=== PATIENT | female | born 1985 | race Caucasian/White ===

== ENCOUNTER → 2016-11-15 | Outpatient (CLI) | payer OTHER, BC ==
[~2016-11-15] MED LIST: AMOX500C3 PO; AMOX500T PO; PRENTAB26 PO
--- NOTE | 2016-11-15 10:10 | DIAGNOSTIC IMAGING REPORT ---
KUB HISTORY: N20.0 Calculus of [id number] COMPARISON: KUB 05/12/2016. FINDINGS: The bowel gas pattern is unremarkable. There are no dilated loops of small bowel to suggest an obstruction. Stable right pelvic calcifications suggestive of phleboliths. No renal or ureteral calculi identified. Cholecystectomy. No pneumoperitoneum or pneumatosis. IMPRESSION: No renal or ureteral stones. Electronically signed by: Lazaro Montalvo M.D. 11/15/2016 10:08 AM Dictated Date/Time: 11/15/2016 10:06 AM
== END | disposition home or self-care (01) ==
LOC: C.RAD1850 09:42
PROVIDERS: ATTEND Nurse Practitioner Family
DX: N20.0 Calculus of kidney (principal)

== ENCOUNTER → 2016-12-08 | Outpatient (CLI) | payer OTHER, BC ==
[2016-12-08 09:57] LABS: ALT/SGPT 45 U/L (12-78); BLOOD UREA NITROGEN 14 mg/dl (7-18); BUN/CREATININE RATIO 20.6 (10-20); CALCIUM 8.6 mg/dl (8.5-10.1); CARBON DIOXIDE 26 mmol/L (21-32); CHLORIDE 106 mmol/L (98-107); CHOLESTEROL 165 mg/dl (0-200); CREATININE 0.67 mg/dl (0.60-1.20); GLUCOSE 89 mg/dl (70-99); POTASSIUM 3.6 mmol/L (3.5-5.1); SODIUM 139 mmol/L (136-145)
[2016-12-08 10:08] LABS: ALB/GLOB RATIO 1.1 (0.9-2); ALKALINE PHOSPHATASE 139 U/L (45-117); AST/SGOT 16 U/L (15-37); CHOLESTEROL/HDL RATIO 3.2; HDL CHOLESTEROL 52 mg/dl; LDL CHOLESTEROL CALCULATED 93 mg/dl; THYROID STIMULATING HORMONE < 0.005 uIu/ml (0.300-4.500); TRIGLYCERIDES 102 mg/dl (0-150); VERY LOW DENSITY LIPOPROT CALC 20 mg/dl
== END | disposition home or self-care (01) ==
LOC: C.LAB1850 07:12
PROVIDERS: ATTEND Internal Medicine
DX: Z13.220 Encounter for screening for lipoid disorders (principal); M79.89 Other specified soft tissue disorders

== ENCOUNTER → 2016-12-16 | Outpatient (CLI) | payer OTHER, BC ==
[2016-12-16 10:28] LABS: BLOOD UREA NITROGEN 10 mg/dl (7-18); BUN/CREATININE RATIO 13.5 (10-20); CALCIUM 8.9 mg/dl (8.5-10.1); CARBON DIOXIDE 27 mmol/L (21-32); CHLORIDE 108 mmol/L (98-107); CREATININE 0.73 mg/dl (0.60-1.20); GLUCOSE 89 mg/dl (70-99); POTASSIUM 4.1 mmol/L (3.5-5.1); SODIUM 142 mmol/L (136-145)
[2016-12-16 10:42] LABS: C-REACTIVE PROTEIN < 0.29 mg/dl (0-0.29); THYROID STIMULATING HORMONE < 0.005 uIu/ml (0.300-4.500)
== END | disposition home or self-care (01) ==
LOC: C.LAB1850 07:22
PROVIDERS: ATTEND Internal Medicine
DX: R79.89 Other specified abnormal findings of blood chemistry (principal); M79.89 Other specified soft tissue disorders

== ENCOUNTER → 2017-01-21 | Outpatient (CLI) | payer OTHER, BC ==
[2017-01-21 10:34] LABS: HEMATOCRIT 41.2 % (37-47); MEAN CELL VOLUME 83.6 fL (80-100); MEAN CORPUSCULAR HEMOGLOBIN 28.2 pg (25-34); MEAN CORPUSCULAR HGB CONC 33.7 g/dl (32-36); MEAN PLATELET VOLUME 9.4 fL (7.4-10.4); PLATELET COUNT 274 K/uL (130-400); RED BLOOD COUNT 4.93 M/uL (4.2-5.4); WHITE BLOOD COUNT 10.34 K/uL (4.8-10.8)
[2017-01-21 11:11] LABS: THYROID STIMULATING HORMONE 4.62 uIu/ml (0.300-4.500)
[2017-01-26 19:33] LABS: MICROSOMAL AB <1 IU/ML (<9); TSI 113 % baseline (<140)
== END | disposition home or self-care (01) ==
LOC: C.LAB1850 10:01
PROVIDERS: ATTEND Internal Medicine Endocrinology, Diabetes & Metabolism
DX: M79.1 Myalgia (principal); R53.83 Other fatigue; R79.89 Other specified abnormal findings of blood chemistry

== ENCOUNTER → 2017-03-09 | Outpatient (CLI) | payer OTHER, BC ==
[2017-03-09 17:04] LABS: THYROID STIMULATING HORMONE 1.38 uIu/ml (0.300-4.500)
== END | disposition home or self-care (01) ==
LOC: C.LAB1850 14:57
PROVIDERS: ATTEND Internal Medicine Endocrinology, Diabetes & Metabolism
DX: R79.89 Other specified abnormal findings of blood chemistry (principal); E05.90 Thyrotoxicosis, unspecified without thyrotoxic crisis or storm

== ENCOUNTER → 2017-04-12 | Outpatient (CLI) | payer OTHER, BC ==
[2017-04-12 15:04] LABS: THYROID STIMULATING HORMONE 0.796 uIu/ml (0.300-4.500)
== END | disposition home or self-care (01) ==
LOC: C.LAB1850 12:29
PROVIDERS: ATTEND Internal Medicine Endocrinology, Diabetes & Metabolism
DX: R79.89 Other specified abnormal findings of blood chemistry (principal); Z86.39 Personal history of other endocrine, nutritional and metabolic disease

== ENCOUNTER → 2017-04-14 | Outpatient (CLI) | payer OTHER, BC | END | disposition home or self-care (01) | LOC: C.LABSPEC 17:53 | PROVIDERS: ATTEND Obstetrics & Gynecology | DX: J02.9 Acute pharyngitis, unspecified (principal) ==

== ENCOUNTER → 2017-08-01 | Outpatient (CLI) | payer OTHER, BC ==
[2017-08-01 14:24] LABS: THYROID STIMULATING HORMONE 1.97 uIu/ml (0.300-4.500)
[2017-08-02 07:11] LABS: ESTIMATED AVERAGE GLUCOSE 100 mg/dl; HA1C FLAG Normal (Normal)
== END | disposition home or self-care (01) ==
LOC: C.LAB1850 11:21
PROVIDERS: ATTEND Internal Medicine Endocrinology, Diabetes & Metabolism
DX: E55.9 Vitamin D deficiency, unspecified (principal); Z87.898 Personal history of other specified conditions; R94.6 Abnormal results of thyroid function studies; Z86.39 Personal history of other endocrine, nutritional and metabolic disease

== ENCOUNTER → 2017-11-29 | Outpatient (CLI) | payer BC | END | disposition home or self-care (01) | LOC: C.LAB1850 08:48 | PROVIDERS: ATTEND Internal Medicine Endocrinology, Diabetes & Metabolism | DX: R94.6 Abnormal results of thyroid function studies (principal); R63.5 Abnormal weight gain ==

== ENCOUNTER 2020-03-13 04:36 | Inpatient (IN) ==
[2020-03-13] MEDS ORDERED: OXYTOCIN 30 UNITS/500 ML BAG IV PRN ×3 (08:11→20:20)
[2020-03-13] MEDS ORDERED: PENICILLIN G POTASSIUM 6 MU in DEXTROSE 5% 250 ML IV STA (08:18)
[2020-03-13 08:38] LABS: Hematocrit (blood only) 31.3 % (37-47); Hemoglobin 10.6 g/dL (12.0-16.0); Mean Corpuscular Hemoglobin 28.4 pg (25-34); Mean Corpuscular Volume 83.9 fL (80-100); Mean Platelet Volume 10.7 fL (7.4-10.4); Platelet Count 174 K/uL (130-400); RDW Coefficient of Variation 13.6 % (11.5-14.5); RDW Standard Deviation 41.9 fL (36.4-46.3); Red Blood Count 3.73 M/uL (4.2-5.4); White Blood Count 8.27 K/uL (4.8-10.8)
[2020-03-13 08:41] LABS: Mean Corpuscular Hgb Conc 33.9 g/dL (32-36)
[2020-03-13] MEDS: LACTATED RINGER'S 1,000 ML IV PRN ×2 (09:10→16:56)
--- NOTE | 2020-03-13 09:35 | History & Physical Report ---
Date of Service March 13, 2020 Assessment & Plan (1) resulting from in-vitro fertilization: - Induction of labor with pitocin per protocol - Penicillin G for intrapartum GBS treatment History of Present Illness Primary Care Provider: Alejandra Delacruz MD Collin is a 34 y/o female EDC 03/20/20 confirmed by ultrasound; comes in for elective induction; GBS positive . Positive contractions; Positive movement; No fluid loss; No bloody show External FHT and external uterine monitors used; Category I tracing; Minimal FHT variability. Had regular appointments with OB. Labs: (03/13/20) Blood type: O negative (Rhogam given 12/28/19) Antibody screen: Neg H.6 Hct: 31.3 WBC: 8.27 Plt: 174 Rubella: Immune VDRL/RPR: Neg Gonorrhea: Neg Chlamydia: Neg HIV: Neg CF: Neg SMA: Neg HbSAg: Neg GBS Positive Allergies Allergy/AdvReac Type Severity Reaction Status Date / Time ethinyl estradiol Allergy Intermediate Hives Verified 03/12/20 20:19 [From [place] (28)] minocycline Allergy Intermediate HIVES Verified 03/12/20 20:19 norethindrone Allergy Hives Verified 03/12/20 20:19 [From [facility] ()] Home Medications Home Medications Medication Instructions Recorded Confirmed Type prenat.vits,eileen,lse-dpir-luzhq 1 tab PO DAILY 08/20/19 03/13/20 History levothyroxine 75 mcg tablet 75 mcg PO .COMPLEX #30 tab 10/04/19 03/13/20 Rx Patient History Social History Preferred Language: Macanese Communication Ability: Effective Beliefs That Will Affect Care: None marital status: marital status details: Dwight Inch ( ) Current Living Situation: Family Current Living Situation Comment: lives with spouse, 4 children, 2 dogs, goats, current occupational status: employed current occupation: [employer] Other Information That Helps Us Care for You: No Feels Safe at Home: Yes Safety Concerns: Feels Safe At This Time Smoking Status: Never smoker Hx Alcohol Use: No Hx Substance Use: No Review of Systems Constitutional: denies fever, chills, sweat, headache Respiratory: denies shortness of breath, difficulty breathing Cardiac: denies chest pain, palpitations, chest pressure Breast: denies breast pain : denies dysuria Physical Exam Physical Exam: General: Alert, oriented. No acute distress. Cardiac: Regular rate and rhythm, no murmurs/rubs/gallops. Respiratory: Clear to auscultation bilaterally a/p, no wheezes/rales/rhonchi. No increased work of breathing. Symmetrical chest rise. No respiratory distress. Abdomen: Gravid; FH term; Positive FHTs; Position: V Pelvic: Dilation 2cm; Effacement 50%; Station -[address] Cox Lower Extremities: No lower extremity edema or swelling. No deep calf pain. Johny's negative bilaterally Results & Data Vital Signs (Past 12 Hours) Vital Signs Temp Pulse Resp BP 03/13/20 09:21 83 126/83 03/13/20 08:12 75 117/78 03/13/20 08:06 36.9 C 16 Supervising Physician Co-Signing Physician Notes Resident Physician Supervision Note: I interviewed and examined the patient. Discussed with Dr. Hayes and agree with findings and plan as documented in the note. Any exceptions or clarifications are listed here: [None] Documented By: Shirley Alaniz MD, FACOG Resident Activity Tracking Resident Involvement: Resident Care Provided Care Provided: OB Delivery
[2020-03-13] MEDS: PENICILLIN G POTASSIUM 3 MU in DEXTROSE 5% 100 ML IV PRN ×2 (12:51→16:49)
[2020-03-13] MEDS ORDERED: ePHEDrine sulfate 50 MG/ML AMP ONE (19:10)
[2020-03-13] MEDS ORDERED: BUPIVACAINE 0.25% 30 ML VIAL ONE (19:10)
[2020-03-13] MEDS ORDERED: fentaNYL 2MCG/ML ROPIV 1.25MG/ML 100 ML BAG EPI ONE (19:10)
[2020-03-13] MEDS ORDERED: fentaNYL citrate 100 MCG/2 ML VIAL ONE (19:10)
[2020-03-13] MEDS ORDERED: NALOXONE HCL 1 MG in SODIUM CHLORIDE 0.9% 1000ML 1,000 ML IV PRN (19:27)
[2020-03-13] MEDS ORDERED: ePHEDrine sulfate 50 MG/ML AMP IV PRN (19:27)
[2020-03-13] MEDS ORDERED: NALOXONE HCL 0.4 MG/1 ML VIAL/CARP IV PRN (19:27)
[2020-03-13] MEDS ORDERED: PROMETHAZINE HCL 6.25 MG in SODIUM CHLORIDE 0.9% 50 ML IV PRN (19:27)
[2020-03-13] MEDS ORDERED: DiphenhydrAMINE HCL 50 MG/ML VIAL IV PRN (19:27)
[2020-03-13] MEDS ORDERED: ONDANSETRON INJ 2 MG/ML 2 ML VIAL IV PRN (19:27)
[2020-03-13] MEDS ORDERED: fentaNYL 2MCG/ML ROPIV 1.25MG/ML 100 ML BAG EPI PRN (19:27)
--- NOTE | 2020-03-13 19:27 | Anesthesiology Consultation ---
Date of Service March 13, 2020 Assessment & Plan (1) Encounter for pre-operative examination: Chart Review Chart Review: Patient NOT seen in Pre Admission Testing and Acceptable Risk for Labor Epidural Consults Requested none ASA ASA2 Proposed Anesthesia Anesthesia Type: Labor Epidural Risk / Benefits Reviewed With: PT / POA / Parent / Guardian, Accepts Plan and Informed Consent Obtained History Height/Weight Height: 5 ft 9 in Weight: 109.769 kg Allergies Allergy/AdvReac Type Severity Reaction Status Date / Time ethinyl estradiol Allergy Intermediate Hives Verified 03/12/20 20:19 [From [place] (28)] minocycline Allergy Intermediate HIVES Verified 03/12/20 20:19 norethindrone Allergy Intermediate Hives Verified 03/13/20 13:46 [From [facility] ()] Medications Home Medications Medication Instructions Recorded Confirmed Last Taken prenat.vits,eileen,sst-xsca-eftrh 1 tab PO DAILY 08/20/19 03/13/20 03/11/20 levothyroxine 75 mcg tablet 75 mcg PO .COMPLEX #30 tab 10/04/19 03/13/20 03/13/20 Active Medications Generic Name Dose Route Start Last Admin Trade Name Freq PRN Reason Stop Dose Admin Lactated Ringer's 1,000 mls @ 125 mls/hr 03/13/20 08:11 03/13/20 19:06 Lr IV 03/15/20 08:10 999 mls/hr .Q8H PRN Infusion L&D Protocol Protocol Penicillin G Potassium 3 mu/ 106 mls @ 100 mls/hr 03/13/20 08:11 03/13/20 17:53 Dextrose IV 03/23/20 08:10 Infused Q4H PRN Infusion Give until delivery Oxytocin 30 units in 500 mls @ 16 mls/hr 03/13/20 08:26 03/13/20 13:00 Pitocin IV 03/15/20 08:25 0.96 units/hr .Q24H PRN 16 mls/hr Labor Induction/Augmentation Titration Protocol 0.96 UNITS/HR NPO Date Last Intake of Fluids: 03/13/20 Time Last Intake of Fluids: 16:00 Date Last Intake of Solids: 03/13/20 Time Last Intake of Solids: 06:00 Past Medical History Medical History Abnormal weight gain (Chronic) Hypothyroidism (Chronic) Iron deficiency anemia (Resolved) Prophylactic immunotherapy Right ureteral calculus (Chronic) Vitamin D deficiency (Chronic) Exercise / Class Metabolic Activity II 4-5 Yardwork/Stairs/Walk up hill Past Family History Family History Grandfather Thyroid cancer Mother Hypertension Leiomyoma of uterus Thyroid disorder Uncle Diabetes Father Heart disease Myocardial infarction Grandmother Pancreatic cancer Daughter Myeloid leukemia Family/Other Alcohol abuse Trisomy 21 Past Surgical History Surgical History History of cholecystectomy Past Anesthesia History No Hx of Anesthesia Complications and No Family Hx of Anesthesia Complications History of PONV No Hx of PONV and No Hx of Motion Sickness Social History Smoking Status: Never smoker Hx Alcohol Use: No Hx Substance Use: No substance use type: does not use Physical Exam Vital Signs Last Vital Signs Temp 36.7 C 03/13/20 17:20 Pulse 79 03/13/20 19:00 Resp 18 03/13/20 15:10 BP 129/98 03/13/20 19:00 ENMT Mouth: no dentition abnormality Thyromental Distance: > or= 3.5 Finger Breadths Mallampati Class: II Neck normal visual inspection Respiratory normal respiratory effort Auscultation: lungs clear to auscultation bilaterally Cardiovascular Rate/Rhythm: regular rate and regular rhythm Psychiatric Orientation: alert Testing Laboratory Results 03/13/20 08:25
[2020-03-13] MEDS ORDERED: BENZOCAINE 20% AER SPR 82.5 GM CAN EXT PRN (20:20)
[2020-03-13] MEDS ORDERED: ACETAMINOPHEN 325 MG TAB PO PRN (20:20)
[2020-03-13] MEDS ORDERED: SUPERCREAM 0.870% 15 GM JAR EXT PRN (20:20)
[2020-03-13] MEDS ORDERED: bisacodyL 10 MG SUPP PR PRN (20:20)
[2020-03-13] MEDS ORDERED: HYDROCORTISONE ACETATE 25 MG SUPP PR PRN (20:20)
[2020-03-13] MEDS ORDERED: DIPHTHERIA/TETANUS/PERTUSSIS 0.5 ML SYR/VIAL IM ONE (20:20)
[2020-03-13] MEDS ORDERED: IBUPROFEN 600 MG TAB PO PRN (20:20)
[2020-03-13] MEDS ORDERED: DOCUSATE SODIUM 100 MG CAP PO SCH (21:00)
--- NOTE | 2020-03-14 02:21 | Delivery Summary ---
DATE OF OPERATION: 03/13/2020 The patient is a 34-year-old 5, para 4-0-0-4 white female, EDC of 03/20/2020 who presents for induction of labor. This is a surrogacy and the patient is requesting induction of labor at 39 weeks. Pitocin augmentation of her labor was begun. Membranes were ruptured for clear fluid. She progressed to approximately 7 cm requesting epidural analgesia. She then rapidly went to full dilation and pushed effectively over intact perineum for delivery of a viable female infant. There was a tight nuchal cord present upon delivery of the head. This was clamped and cut prior to delivering the rest of the which delivered easily. The infant was then taken to the baby bed for the adoptive parents to take part in the delivery. The placenta was expressed intact with a 3-vessel cord. There were no perineal lacerations present. Estimated blood loss was 400 mL. bleeding was controlled with dilute Pitocin. I attest to the content of the Intraoperative Record and any orders documented therein. Any exception s are noted below.
[2020-03-14 06:26] LABS: Hematocrit (blood only) 28.2 % (37-47); Hemoglobin 9.6 g/dL (12.0-16.0); Mean Corpuscular Hemoglobin 28.6 pg (25-34); Mean Corpuscular Volume 83.9 fL (80-100); Mean Platelet Volume 11.6 fL (7.4-10.4); Platelet Count 180 K/uL (130-400); RDW Coefficient of Variation 13.4 % (11.5-14.5); RDW Standard Deviation 40.7 fL (36.4-46.3); Red Blood Count 3.36 M/uL (4.2-5.4); White Blood Count 12.52 K/uL (4.8-10.8)
--- NOTE | 2020-03-14 06:27 | Obstetrical Progress Note ---
Date of Service <Jj Cho MD - Last Filed: 03/14/20 06:27> March 14, 2020 Assessment & Plan <Jj Cho MD - Last Filed: 03/14/20 06:27> (1) Surrogate : - Feels well today. Eating well, voiding well, ambulating well. - Pain well controlled with analgesics. - Routine care - After discharge will have follow-up at 6 weeks. Subjective <Jj Cho MD - Last Filed: 03/14/20 06:27> Collin is a 34 y/o female ; PPD #1 following spontaneous vaginal delivery; doing well this morning; light abdominal cramping & 2/10 pain well managed on analgesics; voiding well; tolerating meals overnight and able to ambulate some; some persistent spotting with some improvement this morning. She says she feels ready to go home today. Review of Systems Constitutional: denies fever, chills, sweat, headache Respiratory: denies shortness of breath, difficulty breathing Cardiac: denies chest pain, palpitations, chest pressure Breast: denies breast pain : denies dysuria Physical Exam <Jj Cho MD - Last Filed: 03/14/20 06:27> General: Alert, oriented. No acute distress. Cardiac: Regular rate and rhythm, no murmurs/rubs/gallops. Respiratory: Clear to auscultation bilaterally a/p, no wheezes/rales/rhonchi. No increased work of breathing. Symmetrical chest rise. No respiratory distress. Abdomen: Soft, nontender, nondistended. Bowel sounds present. Uterus: Uterine fundus firm, palpable 1cm below umbilicus. Lower Extremities: No lower extremity edema or swelling. No deep calf pain. Johny's negative bilaterally. Results & Data <Jj Cho MD - Last Filed: 03/14/20 06:27> Vital Signs (Past 12 Hours) Vital Signs Temp Pulse Pulse Resp BP BP Pulse Ox 03/14/20 03:10 36.6 C 63 18 121/74 99 03/13/20 23:30 36.7 C 62 18 122/71 98 03/13/20 22:11 77 18 114/74 03/13/20 21:55 68 110/59 L 03/13/20 21:40 82 18 111/66 03/13/20 21:25 94 H 109/62 03/13/20 21:10 86 18 116/65 03/13/20 21:00 83 18 113/66 03/13/20 20:40 74 18 116/75 03/13/20 20:26 104 H 18 107/75 03/13/20 20:11 36.5 C 95 H 18 116/64 03/13/20 20:09 78 105/70 03/13/20 20:06 84 115/58 L 100 03/13/20 20:04 98 H 118/55 L 03/13/20 20:02 81 124/60 03/13/20 20:01 85 99 03/13/20 20:00 90 125/58 L 03/13/20 19:59 85 123/56 L 03/13/20 19:56 153 H 97 03/13/20 19:53 110 H 150/64 H 03/13/20 19:51 85 99 03/13/20 19:50 103 H 130/64 03/13/20 19:48 95 H 129/66 03/13/20 19:47 85 118/64 03/13/20 19:46 92 H 96 03/13/20 19:45 95 H 163/79 H 03/13/20 19:41 105 H 99 03/13/20 19:36 95 H 99 03/13/20 19:33 93 H 133/67 03/13/20 19:31 83 97 03/13/20 19:00 79 129/98 <Shirley Alaniz MD, FACOG - Last Filed: 03/14/20 09:36> Co-Signing Physician Notes Resident Physician Supervision Note: I interviewed and examined the patient. Discussed with Dr. Hayes and agree with findings and plan as documented in the note. Any exceptions or clarifications are listed here: [None] Documented By: Shirley Alaniz MD, FACOG Resident Activity Tracking <Jj Cho MD - Last Filed: 03/14/20 06:27> Resident Involvement: Resident Care Provided Care Provided: OB Delivery
[2020-03-14] MEDS ORDERED: LEVOTHYROXINE SODIUM 75 MCG TABLET PO SCH (06:30)
[2020-03-14] MEDS ORDERED: PRENATAL VITAMIN 1 TAB PO SCH (08:00)
[2020-03-14] MEDS ORDERED: bisacodyL 5 MG TABEC PO SCH (20:00)
== END 2020-03-14 11:25 | disposition home or self-care (01) | DRG 806 ==
LOC: 4S1 07:44 → 4S2 23:11